=== PATIENT | male | born 1985 | race Caucasian/White ===

== ENCOUNTER 2017-04-30 05:16 | Inpatient (IN) | payer OTHER ==
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
[2017-04-30] MEDS ORDERED: NS 1,000 ML IV ONE (05:32)
[2017-04-30] MEDS ORDERED: HYDROmorphONE/DILAUDID 1 MG/ML SYR IVP ONE (05:32)
[2017-04-30] MEDS ORDERED: ONDANSETRON 4 MG/2 ML VIAL IVP ONE (05:32)
[2017-04-30 05:43] LABS: % IMMATURE GRANULYOCYTES 0.2 % (0.0-1.1); ABSOLUTE IMMATURE GRANULOCYTES 0.02 10^3/uL (0.00-0.10); ADD DIFF? NO; ADD MORPH? NO; ADD SCAN? NO; ATYPICAL LYMPHOCYTE FLAG 70 (0-99); FRAGMENT RBC FLAG 0 (0-99); LEFT SHIFT FLG 20 (0-99); LIPEMIA HEMOLYSIS FLAG 90 (0-99); MEAN CELL HEMOGLOBIN 29.1 pg (27.9-34.1); MEAN CELL VOLUME 85.5 fL (81.5-99.8); MEAN PLATELET VOLUME 8.9 fL (8.7-11.7); PLATELET CLUMPS FLAG 0 (0-99); PLATELET COUNT 263 10^3/uL (150-400); RED BLOOD CELL COUNT 5.85 10^6/uL (4.40-6.38)
[2017-04-30 05:54] LABS: INR 1.03 (0.83-1.16); PROTIME(PATIENT) 13.4 SEC (12.0-15.0)
[2017-04-30 05:55] LABS: APTT 24.6 SEC (23.0-38.0)
[2017-04-30 05:56] LABS: ALANINE AMINOTRANSFERASE 51 IU/L (21-72); ALBUMIN 4.3 g/dL (3.5-5.0); ALKALINE PHOSPHATASE 52 IU/L (38-126); ANION GAP 13 mEq/L (8-16); ASPARTATE AMINOTRANSFERASE 23 IU/L (17-59); BILIRUBIN,TOTAL 1.1 mg/dL (0.1-1.4); BILIRUBIN-CONJUGATED 0.2 mg/dL (0.0-0.5); BILIRUBIN-UNCONJUGATED 0.9 mg/dL (0.0-1.1); CALCIUM 9.4 mg/dL (8.5-10.4); CARBON DIOXIDE 26 mEq/l (22-31); CHLORIDE 102 mEq/L (97-110); GLOMERULAR FILTRATION RATE > 60; GLUCOSE 116 mg/dL (70-100); SODIUM 141 mEq/L (134-144); TOTAL PROTEIN 7.2 g/dL (6.3-8.2)
[2017-04-30] MEDS ORDERED: IOPAMIDOL (ISOVUE-300) 100 ML BTL ONE (06:39)
[2017-04-30] MEDS ORDERED: METOCLOPRAMIDE 10 MG/2 ML VIAL IVP PRN (07:35)
[2017-04-30] MEDS ORDERED: ACETAMINOPHEN 325 MG TAB PO PRN (07:35)
[2017-04-30] MEDS ORDERED: ONDANSETRON 4 MG/2 ML VIAL IVP PRN (07:35)
[2017-04-30] MEDS ORDERED: PROMETHAZINE HCL 25 MG/ML INJ IVP PRN (07:35)
[2017-04-30] MEDS: D5W 1/2 NS W/ 20 KCl/L 1,000 ML IV SCH ×3 (08:46→23:32)
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
[2017-04-30] MEDS: HYDROmorphONE/DILAUDID 1 MG/ML SYR IVP PRN (09:28)
[2017-04-30 12:32] LABS: COLOR YELLOW; LEUKOCYTE ESTERASE,URINE NEGATIVE (NEGATIVE); NITRITE,URINE NEGATIVE (NEGATIVE)
[2017-05-01] MEDS: HYDROmorphONE/DILAUDID 1 MG/ML SYR IVP PRN (03:02)
[2017-05-01 05:16] LABS: % IMMATURE GRANULYOCYTES 0.2 % (0.0-1.1); ABSOLUTE IMMATURE GRANULOCYTES 0.01 10^3/uL (0.00-0.10); ADD DIFF? NO; ADD MORPH? NO; ADD SCAN? YES; ANION GAP 9 mEq/L (8-16); CALCIUM 8.2 mg/dL (8.5-10.4); CARBON DIOXIDE 23 mEq/l (22-31); CHLORIDE 107 mEq/L (97-110); FRAGMENT RBC FLAG 0 (0-99); GLOMERULAR FILTRATION RATE > 60; GLUCOSE 102 mg/dL (70-100); HEMATOCRIT 42.3 % (40.0-51.0); HEMOGLOBIN 14.2 g/dL (13.7-17.5); LEFT SHIFT FLG 0 (0-99); LIPEMIA HEMOLYSIS FLAG 80 (0-99); MEAN CELL HEMOGLOBIN 28.8 pg (27.9-34.1); MEAN CELL HEMOGLOBIN CONCENTR. 33.6 g/dL (32.4-36.7); MEAN CELL VOLUME 85.8 fL (81.5-99.8); MEAN PLATELET VOLUME 9.4 fL (8.7-11.7); PLATELET CLUMPS FLAG 0 (0-99); PLATELET COUNT 214 10^3/uL (150-400); POTASSIUM 4.3 mEq/L (3.5-5.2); RED BLOOD CELL COUNT 4.93 10^6/uL (4.40-6.38); RED CELL DISTRIBUTION WIDTH 13.2 % (11.5-15.2); SODIUM 139 mEq/L (134-144)
[2017-05-01 05:20] LABS: ATYPICAL LYMPHOCYTE FLAG 130 (0-99)
[2017-05-01 05:42] LABS: SCAN NEGATIVE
[2017-05-01] MEDS: D5W 1/2 NS W/ 20 KCl/L 1,000 ML IV SCH (07:13)
--- NOTE | 2017-05-01 11:01 | SOAPPROG ---
SOAP Progress Note Assessment/Plan: Assessment/Plan: Hospital day 2. For the 31-year-old male with small-bowel obstruction Patient is doing well today, denies abdominal pain. Abdominal distention is completely improved. Nasogastric tube was put out about a L since placement, output is still dark. Patient has been walking diligently. Given his clinical progression, will plan to clamp his NG tube this afternoon, if does well after clamp trial will plan to advance diet and discharge home. 05/01/17 11:00 Subjective: Denies nausea, denies pain, passing flatus Objective: Vital Signs Temp Pulse Resp BP Pulse Ox 36.6 C 67 14 121/73 H 98 05/01/17 08:00 05/01/17 08:00 05/01/17 08:00 05/01/17 08:00 05/01/17 08:00 Laboratory Results 05/01/17 04:50 05/01/17 04:50 04/30/17 05/01/17 05/02/17 05:59 05:59 05:59 Intake Total 2340 Output Total 1900 1300 Balance 440 -1300 PT 13.4 SEC (12.0-15.0) 04/30/17 05:35 INR 1.03 (0.83-1.16) 04/30/17 05:35 ICD10 Worksheet Patient Problems: Problems Problem Status Onset SBO (small bowel obstruction) Acute
[2017-05-01 11:36] VITALS: O2SAT 99
--- NOTE | 2017-05-01 14:59 | PDDCSUM ---
Discharge Summary Discharge Summary: DISCHARGE SUMMARY Date of Admission April 30 Date of Discharge May 01 DISCHARGE DIAGNOSES -small-bowel obstruction, resolved HOSPITAL COURSE The patient was admitted from the ED where a CT scan showed findings consistent with a small bowel obstruction. The patient was subsequently treated with nasogastric tube decompression and after 24 hours of decompression his abdominal pain has resolved, he was passing flatus, having bowel movements, and having no pain. His nasogastric tube was subsequently removed, he tolerated a regular diet without any return of nausea or vomiting. He was subsequently discharged home, uneventfully on hospital day 2. DISCHARGE MEDICATIONS None DISPOSITION Home FOLLOW UP He can follow up with me as needed, no formal requirement for follow-up.
[2017-05-01 16:02] VITALS: BP 128/79; PULSE 64; RESP 14; TEMP 97.7
== END 2017-05-01 16:28 | disposition home or self-care (01) | DRG 390 ==
LOC: F3E 08:10
PROVIDERS: ADMIT Surgery; ATTEND Surgery
DX: K56.60 Unspecified intestinal obstruction (principal)
CPT/HCPCS: J1170; J2405; Q9967

== ENCOUNTER 2019-03-28 03:52 | Inpatient (IN) | payer OTHER | END 2019-03-30 16:46 | disposition home or self-care (01) | LOC: F3E 16:36 ==